=== PATIENT | female | born 1960 | race Caucasian/White ===

== ENCOUNTER 2018-05-07 07:13 | Day surgery (SDC) | payer OTHER ==
[2015-06-30 07:51] VITALS: BMI 30.1
[2018-05-07] MEDS ORDERED: Propofol 10 mg/ml Inj (20 ML) ONE (08:01)
--- NOTE | 2018-05-07 08:02 | CP.SDSHP ---
Same Day Surgery H & P - History Proposed Procedure: egd Pre-Op Diagnosis: dysphagia. hea r tburn. epigastric pain - Previous Medical/Surgical History Misc: Anemia, Other (DJD, Hemorrhoids, ) Previous Surgical History: MIKE/BSO. Hemorrhoidectomy. R Meniscus Tear - Allergies Allergies: Allergies No Known Allergies Allergy (Verified 06/30/15 07:51) - Physical Exam Mental Status: Alert & Oriented x3 Neuro: WNL Heart: WNL Lungs: WNL GI: WNL - Impression Impression: dysphagia. heartburn. epigastric pain Pt. Evaluated Today:Candidate for Anesthesia & Procedure: Yes - Date & Time Date: 05/07/18 Time: 08:02 Short Stay Discharge - Short Stay Discharge Admitting Diagnosis/Reason for Visit: EPIGASTRIC PAIN, HEARTBURN Disposition: HOME/ ROUTINE Referrals: Yessica Ferrera MD [Primary Care Provider] -
[2018-05-07 08:28] VITALS: TEMP 97
[2018-05-07] MEDS ORDERED: Pantoprazole 40 mg EC Tab PO STA ×2 (09:08→10:37)
[2018-05-07] MEDS ORDERED: Lactated Ringer's 500 ML IV ONE (09:15)
[2018-05-07 11:59] VITALS: RESP 18; O2SAT 100
[2018-05-07 12:04] VITALS: BP 142/70; PULSE 75
== END 2018-05-07 11:00 | disposition home or self-care (01) ==
LOC: C.ENDO 07:13
PROVIDERS: ATTEND Internal Medicine Gastroenterology
DX: K20.0 Eosinophilic esophagitis (principal); R13.10 Dysphagia, unspecified; K44.9 Diaphragmatic hernia without obstruction or gangrene; D64.9 Anemia, unspecified; K29.70 Gastritis, unspecified, without bleeding
CPT/HCPCS: 43239; 88305; J2704; J7120